=== PATIENT | female | born 1985 | race Caucasian/White ===

== ENCOUNTER 2022-01-13 01:56 | Emergency (ER) | payer OTHER ==
[~2022-01-13] VITALS: Ht 162.6 cm; Wt 55.3 kg
[2022-01-13 02:28] VITALS: BP 134/74
[2022-01-13] MEDS ORDERED: ACETAMINOPHEN 325 MG TAB PO ONE (04:00)
== END 2022-01-13 04:09 | disposition home or self-care (01) ==
LOC: EDBD 01:56 → ER 01:59
DX: S60.222A Contusion of left hand, initial encounter (principal); S60.212A Contusion of left wrist, initial encounter; V48.0XXA Car driver injured in noncollision transport accident in nontraffic accident, initial encounter; Y93.89 Activity, other specified; Y92.410 Unspecified street and highway as the place of occurrence of the external cause; Y99.8 Other external cause status
CPT/HCPCS: 73110; 73130